=== PATIENT | female | born 1965 | race Caucasian/White ===

== ENCOUNTER 2018-03-21 16:33 | Emergency (ER) | payer OTHER ==
[~2018-03-21] VITALS: Ht 160 cm; Wt 87.3 kg
[2018-03-21 16:51] VITALS: BP 158/92
[2018-03-21] MEDS ORDERED: ONDANSETRON 4 MG/2 ML VIAL IVP ONE ×2 (17:25→19:50)
[2018-03-21] MEDS ORDERED: MORPHINE SULFATE 4 MG/ML SYR IVP ONE ×2 (17:25→19:50)
[2018-03-21 17:45] LABS: BASOPHILS % (AUTO) 0.3 % (0.0-2.0); EOSINOPHILS % (AUTO) 0.5 % (0.0-4.0); HEMATOCRIT 40.3 % (36-48); HEMOGLOBIN 13.5 g/dL (12.0-16.0); LYMPHOCYTES # (AUTO) 1.9 K/uL (2.5-16.5); LYMPHOCYTES % (AUTO) 25.6 % (20.5-51.1); MEAN CORPUSCULAR HEMOGLOBIN 28 pg (27-31); MEAN CORPUSCULAR HGB CONC 34 g/dL (33-37); MEAN CORPUSCULAR VOLUME 83.7 fL (80-94); MONOCYTES # (AUTO) 0.4 K/uL (0.8-1.0); MONOCYTES % (AUTO) 4.8 % (1.7-9.3); NEUTROPHILS # (AUTO) 5.2 K/uL (1.8-7.7); NEUTROPHILS % (AUTO) 68.8 % (42.2-75.2); PLATELET COUNT (AUTO) 190 K/uL (140-450); RED BLOOD CELL COUNT(AUTO) 4.81 MIL/uL (4.20-5.40); WHITE BLOOD COUNT (AUTO) 7.6 K/uL (4.8-10.8)
[2018-03-21 18:03] LABS: ANION GAP 10.5 (8-16); CARBON DIOXIDE 28.3 mmol/L (21-32); CREATININE 0.8 mg/dL (0.6-1.3); POTASSIUM 3.8 mmol/L (3.5-5.1)
[2018-03-21 18:06] LABS: ALBUMIN 4.2 g/dL (3.4-5.0); TOTAL BILIRUBIN 0.5 mg/dL (0.0-1.0)
[2018-03-21] MEDS ORDERED: CLINDAMYCIN 600 MG in DEXTROSE 5% 50 ML IV ONE (19:50)
[2018-03-21] MEDS ORDERED: CLINDAMYCIN 600 MG/4 ML VIAL ONE (20:02)
[2018-03-21 21:17] VITALS: BP 148/75
== END 2018-03-21 21:18 | disposition home or self-care (01) ==
LOC: MED 16:33
DX: L03.221 Cellulitis of neck (principal); K21.9 Gastro-esophageal reflux disease without esophagitis; F41.9 Anxiety disorder, unspecified; I10 Essential (primary) hypertension; Z88.0 Allergy status to penicillin; Z90.89 Acquired absence of other organs; Z90.49 Acquired absence of other specified parts of digestive tract; Z90.710 Acquired absence of both cervix and uterus
CPT/HCPCS: 36415; 70491; 80053; 85025; 96365; 96375; 96376; 99285; J2270; J2405; J3490; J7060; Q9967

== ENCOUNTER 2018-03-24 12:35 | Inpatient (IN) | payer OTHER ==
[~2018-03-24] VITALS: Ht 160 cm; Wt 87.5 kg
[2018-03-24 12:50] VITALS: BP 145/77
--- NOTE | 2018-03-24 13:00 | NUR ---
52 yo f bib self w/ c/o cellulitis to the back of the neck. pt states that she was here on monday for the same thing and given antibiotics. states there has been no improvement. states that she has been lethargic, was told on monday that the cellulitis is close to the spine and that monitoring her is important. pt very distraught at this time and scared. aaox4, gcs 15, rr even and unlabored, no s/s of acute respiratory distress.
--- NOTE | 2018-03-24 14:15 | NUR ---
DR NOBLES AT BEDSIDE.
[2018-03-24] MEDS ORDERED: NACL 0.9% 2,000 ML IV SCH (14:16)
[2018-03-24] MEDS ORDERED: VANCOMYCIN 1,000 MG in DEXTROSE 5% 250 ML IV ONE (14:20)
[2018-03-24] MEDS ORDERED: MORPHINE SULFATE 2 MG/ML SYR IVP ONE (14:20)
[2018-03-24] MEDS ORDERED: KETOROLAC 30 MG/ML VIAL IVP ONE (14:20)
[2018-03-24] MEDS ORDERED: VANCOMYCIN 1,000 MG VIAL ONE (14:37)
[2018-03-24] MEDS ORDERED: OMEP40EC14 PO (14:43)
[2018-03-24] MEDS ORDERED: MORPHINE SULFATE 4 MG/ML SYR IVP SCH (14:45)
[2018-03-24] MEDS ORDERED: RANI150T8 PO (14:50)
[2018-03-24] MEDS ORDERED: SIMV20TA1 PO (14:50)
[2018-03-24] MEDS ORDERED: CLIN300C2 PO (14:50)
[2018-03-24] MEDS ORDERED: BENA40TA9 PO (14:50)
[2018-03-24] MEDS ORDERED: AMLO5TAB3 PO (14:50)
[2018-03-24] MEDS ORDERED: ALPR0.5T2 PO (14:50)
[2018-03-24] MEDS ORDERED: TRAM50TA1 PO (14:50)
--- NOTE | 2018-03-24 14:58 | NUR ---
XRAY AT BEDSIDE
[2018-03-24 15:40] LABS: BASOPHILS % (AUTO) 0.3 % (0.0-2.0); EOSINOPHILS # (AUTO) 0.1 K/uL (0-0.4); EOSINOPHILS % (AUTO) 1.1 % (0.0-4.0); HEMOGLOBIN 13.2 g/dL (12.0-16.0); LYMPHOCYTES # (AUTO) 1.8 K/uL (2.5-16.5); LYMPHOCYTES % (AUTO) 26.5 % (20.5-51.1); MEAN CORPUSCULAR HEMOGLOBIN 28 pg (27-31); MEAN CORPUSCULAR HGB CONC 33 g/dL (33-37); MEAN CORPUSCULAR VOLUME 84.6 fL (80-94); MONOCYTES # (AUTO) 0.4 K/uL (0.8-1.0); MONOCYTES % (AUTO) 6.7 % (1.7-9.3); NEUTROPHILS # (AUTO) 4.3 K/uL (1.8-7.7); NEUTROPHILS % (AUTO) 65.4 % (42.2-75.2); PLATELET COUNT (AUTO) 195 K/uL (140-450); RED BLOOD CELL COUNT(AUTO) 4.73 MIL/uL (4.20-5.40); RED CELL DISTRIBUTION WIDTH 13.4 % (11.6-13.7); WHITE BLOOD COUNT (AUTO) 6.6 K/uL (4.8-10.8)
[2018-03-24 15:54] LABS: APPEARANCE,URINE CLEAR (CLEAR); BILIRUBIN,URINE NEGATIVE (NEGATIVE); BLOOD, URINE NEGATIVE (NEGATIVE); COLOR,URINE YELLOW (YELLOW); LEUKOCYTE ESTERASE ,URINE NEGATIVE (NEGATIVE); NITRITE, URINE NEGATIVE (NEGATIVE); PH,URINE 7.5 (5.0-9.0); UGLUCOSE NEGATIVE (NEGATIVE)
[2018-03-24 16:00] LABS: PROTHROMBIN TIME 9.3 secs (10.8-13.4)
[2018-03-24 16:07] LABS: BARBITURATE, URINE NEG. ng/ml (NEG <=200); BENZODIAZEPINE, URINE POS. ng/mL (NEG <=200); CANNABINOID, URINE NEG. ng/mL (NEG <=50); COCAINE, URINE NEG. ng/mL (NEG <=300); OPIATE, URINE NEG. ng/mL (NEG <=2000); PHENCYCLIDINE SCREEN,URINE NEG. ng/mL (NEG <=25)
[2018-03-24 16:10] LABS: CARBON DIOXIDE 29.7 mmol/L (21-32); CHLORIDE 107 mmol/L (98-107); POTASSIUM 3.7 mmol/L (3.5-5.1); SODIUM SERUM 144 mmol/L (136-145); UREA NITROGEN, BLOOD 8 mg/dL (7-18)
[2018-03-24 16:11] LABS: ALBUMIN 3.9 g/dL (3.4-5.0); ASPARTATE AMINOTRANSFERASE 61 U/L (15-37); CREATININE 0.8 mg/dL (0.6-1.3); GFR ARICAN-AMERICAN 97 mL/min (>90); TOTAL BILIRUBIN 0.4 mg/dL (0.0-1.0)
[2018-03-24 17:00] LABS: GLUCOSE 87 mg/dL (74-106)
[2018-03-24 17:08] LABS: D-DIMER < 100 ng/ml (0-400)
--- NOTE | 2018-03-24 17:10 | NUR ---
ASSISTED PT AMBULATE TO BATHROOM. PT DENIES DISCOMFORT OR SOB.
[2018-03-24] MEDS ORDERED: MORPHINE SULFATE 4 MG/ML SYR IVP PRN (18:15)
[2018-03-24] MEDS ORDERED: ACETAMINOPHEN 325 MG TAB PO PRN (18:15)
[2018-03-24] MEDS ORDERED: ONDANSETRON 4 MG/2 ML VIAL IVP PRN (18:15)
[2018-03-24] MEDS ORDERED: HYDROcodone/APAP 5/325 MG 1 TAB TAB PO PRN (18:15)
[2018-03-24] MEDS ORDERED: LORazepam 2 MG/ML VIAL IVP PRN (18:15)
--- NOTE | 2018-03-24 19:00 | NUR ---
TRANSFERRED PT TO [facility] VIA WHEELCHAIR. PT AWAKE, ALERT. RA. NO S/S OF RESPIRATORY DISTRESS NOTED. REPORT GIVEN TO EL[place],PT AMBULATE FROM HALLWAY TO BED. VITAL STABLE AT THIS MOMENT.
--- NOTE | 2018-03-24 19:10 | NUR ---
ADMITTED PT FROM ER VIA WHEELCHAIR. DX: NECK ABSCESS. AAOX4. PT IS AMBULATORY. NO C/O PAIN AT THIS TIME. NO RESP DISTRESS NOTED. SKIN INTACT. ORIENTED PT TO ROOM. IV TO LEFT FA #20G, PATENT AND INTACT. DISCUSSED PLAN OF CARE, PT VERBALIZED UNDERSTANDING. SAFETY PRECAUTION IN PLACE. CALL LIGHT WITHIN REACH.
[2018-03-24 19:30] VITALS: BP 123/75
--- NOTE | 2018-03-24 20:00 | NUR ---
PT DOESN'T NEED SCDS. PT IS AMBULATORY.
[2018-03-24] MEDS: NACL 0.9% 1,000 ML IV SCH (20:07)
[2018-03-25] VITALS: BP 117/62
--- NOTE | 2018-03-25 00:50 | NUR ---
PT C/O COUGH AND MILD THROAT PAIN. PER PT, SHE'S HAVING ACID REFLUX BEC SHE DIDN'T TAKE HER RANITIDINE TODAY. WILL PAGE DR. HILLMAN.
--- NOTE | 2018-03-25 00:55 | NUR ---
PAGED DR. HILLMAN. DR. MAGANA MACHINE STONE POLISHER. AWAITING FOR CALL BACK.
--- NOTE | 2018-03-25 01:17 | NUR ---
RECEIVED CALL FROM DR. MAGANA. ORDERED RANITIDINE 150MG TAB PO ONCE THEN RANITIDINE 150MG PO BID.
--- NOTE | 2018-03-25 01:25 | NUR ---
RANITIDINE NOT AVAILABLE. HOUSE SUP MADE AWARE. WILL PAGE DR. MAGANA.
--- NOTE | 2018-03-25 01:48 | NUR ---
RECEIVED A CALL FROM DR. MAGANA. ORDERED PANTOPRAZOLE 40 MG IVP X1 NOW THEN PANTOPRAZOLE 40 MG TAB PO DAILY.
[2018-03-25] MEDS ORDERED: PANTOPRAZOLE 40 MG INJ VIAL IVP SCH (02:00)
--- NOTE | 2018-03-25 02:09 | NUR ---
PANTOPRAZOLE 40 MG IVP GIVEN. PT TOLERATED WELL.
--- NOTE | 2018-03-25 04:30 | NUR ---
PT SLEEPING BUT WAKES EASILY. NO S/S OF PAIN. NO S/S OF RESP DISTRESS.
[2018-03-25] MEDS: NACL 0.9% 1,000 ML IV SCH ×2 (04:51→16:19)
--- NOTE | 2018-03-25 05:30 | NUR ---
PT LYING IN BED, AWAKE. NO C/O PAIN OR SOB.
[2018-03-25 07:15] LABS: BASOPHILS % (AUTO) 0.4 % (0.0-2.0); EOSINOPHILS # (AUTO) 0.1 K/uL (0-0.4); EOSINOPHILS % (AUTO) 1.5 % (0.0-4.0); HEMOGLOBIN 12.1 g/dL (12.0-16.0); LYMPHOCYTES # (AUTO) 1.3 K/uL (2.5-16.5); MEAN CORPUSCULAR HEMOGLOBIN 28 pg (27-31); MEAN CORPUSCULAR HGB CONC 33 g/dL (33-37); MEAN CORPUSCULAR VOLUME 84.9 fL (80-94); MONOCYTES # (AUTO) 0.4 K/uL (0.8-1.0); MONOCYTES % (AUTO) 7.3 % (1.7-9.3); NEUTROPHILS # (AUTO) 3.2 K/uL (1.8-7.7); NEUTROPHILS % (AUTO) 64.8 % (42.2-75.2); PLATELET COUNT (AUTO) 177 K/uL (140-450); RED BLOOD CELL COUNT(AUTO) 4.36 MIL/uL (4.20-5.40); RED CELL DISTRIBUTION WIDTH 13.4 % (11.6-13.7); WHITE BLOOD COUNT (AUTO) 4.9 K/uL (4.8-10.8)
--- NOTE | 2018-03-25 07:25 | NUR ---
ENDORSED PT TO DAY SHIFT NURSE. PT IN STABLE CONDITION.
--- NOTE | 2018-03-25 07:27 | NUR ---
RECEIVED REPORT FROM NIGHT RN. PT RESTING IN BED. AAOX4. NO S/S OF ACUTE DISTRESS. PT DENIES PAIN. IV SITE PATENT AND INTACT. CALL LIGHT WITHIN REACH. SAFETY MEASURES ENSURED. WILL CONTINUE TO MONITOR.
[2018-03-25 07:29] LABS: ANION GAP 9.4 (8-16); CARBON DIOXIDE 30.4 mmol/L (21-32); CREATININE 0.8 mg/dL (0.6-1.3); POTASSIUM 4.8 mmol/L (3.5-5.1)
[2018-03-25 08:00] VITALS: BP 164/94
[2018-03-25] MEDS: PANTOPRAZOLE 40 MG TABEC PO SCH (08:45)
--- NOTE | 2018-03-25 08:57 | NUR ---
AM MEDS GIVEN WITH EDUCATION. PT VERBALIZED UNDERSTANDING. WILL CONTINUE TO MONITOR.
[2018-03-25] MEDS ORDERED: LEVOFLOXACIN 500 MG/D5W PREMIX 100 ML IV SCH (09:00)
[2018-03-25] MEDS ORDERED: amLODIPine 5 MG TAB PO SCH (11:15)
[2018-03-25] MEDS ORDERED: BENAZEPRIL 20 MG TAB PO SCH (11:15)
--- NOTE | 2018-03-25 11:25 | NUR ---
PT UP AND AMBULATING IN [place]. NO S/S OF ACUTE DISTRESS. PT DENIES PAIN. WILL CONTINUE TO MONITOR.
[2018-03-25] MEDS ORDERED: ALPRAZolam 0.5 MG TAB PO SCH (13:00)
[2018-03-25] MEDS ORDERED: VANCOMYCIN PER PHARMACY MC PRN (13:55)
--- NOTE | 2018-03-25 14:13 | NUR ---
PATIENT HAS BEEN SCREENED AND CATEGORIZED MODERATE NUTRITION RISK. PATIENT WILL BE SEEN WITHIN 3-5 DAYS OF ADMISSION. 03/27/18 03/29/18 DEB CASH MBA, RD
[2018-03-25] MEDS ORDERED: VANCOMYCIN 1GM/DEXT 5% PREMIX 200 ML IV SCH (15:00)
[2018-03-25 16:00] VITALS: BP 133/96
[2018-03-25] MEDS: ALPRAZolam 0.5 MG TAB PO SCH ×2 (16:56→20:45)
[2018-03-25] MEDS ORDERED: diphenhydrAMINE 50 MG/ML VIAL IVP SCH (18:30)
--- NOTE | 2018-03-25 18:58 | NUR ---
CALLED TO PATIENTS ROOM PT STATES HER ARM SUDDENLY STARTED FEELING ITCHY AND TIGHT. UPON EXAMINATION ARM IS HARD, WARM AND SLIGHTLY RED. EDEMA SPREADING TO HAND. PULSE 2+, NO NUMBNESS OR TINGLING. DR. BLANCO MADE AWARE OF POSSIBLE REACTION TO VANCO. BENADRYL GIVEN. NEW IV STARTED. ICE PACKS PLACED AND EXTREMITY ELEVATED. NO SOB OR S/S OF DISTRESS.
--- NOTE | 2018-03-25 19:25 | NUR ---
RECEIVED REPORT FROM DAY SHIFT NURSE. PT RESTING IN BED, AAOX4. PT LEFT ARM SWOLLEN. ICE PACK IN PLACE. PER PT, IT'S NOT ITCHY ANYMORE AND IT'S NOT GETTING WORSE. REMINDED PT TO CALL IF SHE HAS PAIN, SOB OR IF SHE FEELS THE SWELLING IS GETTING WORSE. IV TO RIGHT FA#22G, NS AT 75 ML, INFUSING WELL. SAFETY PRECAUTION IN PLACE.
[2018-03-25] MEDS: PIPER/TAZO 3.375GM/D5W PREMIX 50 ML IV SCH (20:45)
[2018-03-25] MEDS ORDERED: SIMVASTATIN 20 MG TAB PO SCH (21:00)
--- NOTE | 2018-03-25 21:15 | NUR ---
ZOSYN 3.375GM IVPB GIVEN. NO ADVERSE REACTION NOTED.
--- NOTE | 2018-03-25 22:50 | NUR ---
CHECKED ON PT'S LEFT ARM, SWELLING SUBSIDING. PT STATED "IT'S GETTING BETTER". NO C/O PAIN OR ITCH.
[2018-03-26] VITALS: BP 133/70
--- NOTE | 2018-03-26 02:00 | NUR ---
PT SLEEPING BUR EASILY AROUSABLE. NO S/S OF PAIN. NO S/S OF RESP DISTRESS.
--- NOTE | 2018-03-26 04:30 | NUR ---
PT SLEEPING. RESP EVEN AND UNLABORED. NO S/S OF PAIN OR DISCOMFORT.
[2018-03-26] MEDS: NACL 0.9% 1,000 ML IV SCH ×2 (04:59→07:00)
[2018-03-26] MEDS: PIPER/TAZO 3.375GM/D5W PREMIX 50 ML IV SCH ×2 (05:31→12:06)
--- NOTE | 2018-03-26 06:00 | NUR ---
PT IN BED, AWAKE. DENIES PAIN. LEFT ARM SWELLING SUBSIDING. NO ACUTE DISTRESS NOTED.
--- NOTE | 2018-03-26 07:15 | NUR ---
ENDORSED PT TO DAY SHIFT NURSE. PT IN STABLE CONDITION.
--- NOTE | 2018-03-26 07:40 | NUR ---
PATIENT WAS AWAKE, ALERT. RESPIRATION EVEN, UNLABOR ON ROOM AIR. SKIN DRY AND WARM. IV PATENT AND INTACT. DENIED PAIN AT THIS TIME. PLAN OF CARE WAS DISCUSSED WITH PATIENT. BED AT LOW POSITION, SIDE RAILS UP. CALL LIGHT WITHIN REACH
[2018-03-26 07:53] LABS: BASOPHILS % (AUTO) 0.4 % (0.0-2.0); EOSINOPHILS # (AUTO) 0.1 K/uL (0-0.4); EOSINOPHILS % (AUTO) 2.1 % (0.0-4.0); HEMATOCRIT 37.9 % (36-48); HEMOGLOBIN 12.6 g/dL (12.0-16.0); LYMPHOCYTES # (AUTO) 1.4 K/uL (2.5-16.5); LYMPHOCYTES % (AUTO) 32.8 % (20.5-51.1); MEAN CORPUSCULAR HEMOGLOBIN 28 pg (27-31); MEAN CORPUSCULAR HGB CONC 33 g/dL (33-37); MEAN CORPUSCULAR VOLUME 83.7 fL (80-94); MONOCYTES # (AUTO) 0.2 K/uL (0.8-1.0); MONOCYTES % (AUTO) 5.7 % (1.7-9.3); NEUTROPHILS # (AUTO) 2.5 K/uL (1.8-7.7); PLATELET COUNT (AUTO) 186 K/uL (140-450); RED BLOOD CELL COUNT(AUTO) 4.53 MIL/uL (4.20-5.40); RED CELL DISTRIBUTION WIDTH 13.3 % (11.6-13.7); WHITE BLOOD COUNT (AUTO) 4.2 K/uL (4.8-10.8)
[2018-03-26 08:00] VITALS: BP 120/70
[2018-03-26 08:30] LABS: ALBUMIN 3.5 g/dL (3.4-5.0); ANION GAP 10.9 (8-16); CARBON DIOXIDE 28.1 mmol/L (21-32); CREATININE 0.8 mg/dL (0.6-1.3); TOTAL BILIRUBIN 0.4 mg/dL (0.0-1.0)
[2018-03-26] MEDS: ALPRAZolam 0.5 MG TAB PO SCH ×2 (08:55→12:06)
[2018-03-26] MEDS: PANTOPRAZOLE 40 MG TABEC PO SCH (08:55)
[2018-03-26] MEDS ORDERED: amLODIPine 5 MG TAB PO SCH ×2 (09:00)
[2018-03-26] MEDS ORDERED: NON-FORMULARY ITEM (Omeprazole 40 MG) PO SCH (09:00)
[2018-03-26] MEDS ORDERED: BENAZEPRIL 20 MG TAB PO SCH ×2 (09:00)
--- NOTE | 2018-03-26 10:34 | NUR ---
PATIENT WAS SLEEPING COMFORTABLY. RESPIRATION EVEN, UNLABOR ON ROOM AIR. NO DISTRESS NOTED AT THIS TIME
--- NOTE | 2018-03-26 12:22 | NUR ---
PATIENT WAS TRANSFERRED TO OR. PATIENT IS STABLE AT THIS TIME
[2018-03-26] MEDS ORDERED: LIDOCAINE 1% 0 ML ONE (12:38)
[2018-03-26] MEDS ORDERED: SEVOFLURANE 250 ML BTL INH ONE (12:50)
[2018-03-26] MEDS ORDERED: ONDANSETRON 4 MG/2 ML VIAL ONE (12:50)
[2018-03-26] MEDS ORDERED: PROPOFOL 200 MG/20 ML VIAL IV ONE (12:50)
[2018-03-26] MEDS ORDERED: DEXAMETHASONE 4 MG/ML VIAL ONE (12:50)
[2018-03-26] MEDS ORDERED: MIDAZOLAM 2 MG/2 ML VIAL ONE (13:05)
[2018-03-26] MEDS ORDERED: MEPERIDINE 50 MG/ML SYR ONE (13:05)
[2018-03-26] MEDS ORDERED: fentaNYL 0.05 MG/ML VIAL ONE (13:05)
[2018-03-26] MEDS: BUPIVACAINE-MPF/EPI 0.25% 30 ML VIAL INJ ONE ×2 (13:26→14:31)
[2018-03-26] MEDS ORDERED: diphenhydrAMINE 50 MG/ML VIAL IVP PRN (14:00)
[2018-03-26] MEDS ORDERED: HYDROmorphone 1 MG/ML AMP IVP PRN (14:00)
[2018-03-26] MEDS ORDERED: ONDANSETRON 4 MG/2 ML VIAL IVP PRN (14:00)
[2018-03-26] MEDS ORDERED: MEPERIDINE 25 MG/ML SYR IVP PRN (14:00)
[2018-03-26] MEDS ORDERED: LACTATED RINGERS 1,000 ML IV SCH (14:00)
--- NOTE | 2018-03-26 14:30 | NUR ---
PATIENT WAS TRANSFERRED BACK FROM OR. REPORT WAS GIVEN AT BEDSIDE. VS IS STABLE. PATIENT STATED SHE WANTED TO BE DISCHARGE TODAY. DR. HILLMAN WAS AWARE
[2018-03-26 14:35] VITALS: BP 101/59
[2018-03-26] MEDS ORDERED: AMOX-999 PO (15:30)
--- NOTE | 2018-03-26 15:30 | NUR ---
DR. HERNANDEZ WAS MADE AWARE PATIENT WILL BE DISCHARGE HOME TODAY WITH HOME HEALTH. WOUND CARE ORDER WAS OBTAINED
[2018-03-26] MEDS ORDERED: HYDR-5122 PO (15:32)
[2018-03-26 16:00] VITALS: BP 135/71
--- NOTE | 2018-03-26 16:24 | NUR ---
RECEIVED ORDER FOR HOME HEALTH FOR WOUND CARE. I CALLED ROSE AT [facility]. HE SAID TO USE [facility]. PHONE [phone]. FAX [phone]. I CALLED [facility] AND SPOKE WITH SANIYA. SHE SAID THEY CAN DO [place]. I FAXED THE ORDER, H&P, FACE SHEET AND CONSULT TO HER. SHE ASKED IF ANYONE COULD BE TAUGHT HOW TO DO THE DRESSINGS. PER AYAN GO, THE PATIEN SAID SHE HAS A SISTER WHO LIVES NEARBY AND COULD BE TAUGHT.
--- NOTE | 2018-03-26 17:15 | NUR ---
FAXED FACE SHEET AND ORDER FOR HOME HEALTH TO [facility] [phone] FAXED FACE SHEET AND ORDER FOR HOME HEALTH TO [facility] [phone]. I RECEIVED A CALL FROM ANGELINA ALFARO FROM [facility]. SHE SAID THEY COULD TAKE THE PATIENT BUT NEEDED AND AUTH FROM [facility]. I SPOKE WITH DEMETRIA FROM [facility] AND SHE SAID THE AUTH NEEDS TO COME FROM [facility]. I CALLED [facility] AND LEFT MESSAGE FOR ROSE TO CALL ME WITH THE AUTH.
--- NOTE | 2018-03-26 17:45 | NUR ---
DISCHARGE INSTRUCTION AND PRESCRIPTIONS WERE GIVEN AND EXPLAINED TO THE PATIENT. PATIENT VERBALIZED UNDERSTANDING. IV WAS REMOVED, CATHETER INTACT, NO ACTIVE BLEEDING SEEN. UNABLE TO DO WOUND ASSESSMENT DUE TO PROCEDURE WAS DONE LESS THAN 24 HOURS. WOUND CARE SUPPLY X7 DAYS WERE GIVEN TO THE PATIENT. ALL BELONGINGS WERE TAKEN WITH THE PATIENT. PATIENT, AMBULATORY WITH STEADY GAIT, WAS ESCORTED OUT BY STAFF. PATIENT IS STABLE AT THIS TIME
--- NOTE | 2018-03-27 10:26 | NUR ---
I CALLED ROSE BEATTY AND INFORMED HIM THAT [facility] WILL TAKE THE PATIENT BUT NEEDS AUTH. I GAVE HIM THE NUMBER, . HE SAID HE WOULD TAKE CARE OF THE AUTH. ROSE BEATTY [phone].
== END 2018-03-26 17:45 | disposition home health service (06) | DRG 383 ==
LOC: MED 12:35 → MTU 18:57
PROVIDERS: ADMIT Hospitalist; ATTEND Hospitalist
PROC: 0JB50ZZ Excision of Left Neck Subcutaneous Tissue and Fascia, Open Approach (ICD-10-PCS; principal; 2018-03-26 12:30)
DX: L03.221 Cellulitis of neck (principal); E78.00 Pure hypercholesterolemia, unspecified; L02.11 Cutaneous abscess of neck; F41.9 Anxiety disorder, unspecified; E78.5 Hyperlipidemia, unspecified; I10 Essential (primary) hypertension; K21.9 Gastro-esophageal reflux disease without esophagitis; Z87.891 Personal history of nicotine dependence; Z90.710 Acquired absence of both cervix and uterus; Z88.0 Allergy status to penicillin; Z79.899 Other long term (current) drug therapy; Z90.49 Acquired absence of other specified parts of digestive tract
CPT/HCPCS: 36415; 71045; 76536; 80048; 80053; 80305; 81003; 81025; 83605; 85025; 85379; 85610; 85730; 87040; 87070; 87075; 87081; 87086; 87186; 87205; 93005; 96361; 96374; 96375; 99285; C9113; G0482; J1100; J1200; J1885; J1956; J2001; J2175; J2250; J2270; J2405; J2543; J2704; J3010; J3370; J3490; J7030; Q0092